=== PATIENT | male | born 1955 | race Caucasian/White ===

== ENCOUNTER 2017-04-14 15:33 | Inpatient (IN) | payer OTHER ==
[~2017-04-14] VITALS: Ht 177.8 cm; Wt 105.0 kg
[2017-04-14] MEDS ORDERED: ONDANSETRON 2MG/ML, 2ML ONE (16:24)
[2017-04-14] MEDS ORDERED: MORPHINE SULFATE 4 MG/ML, 1ML ONE (16:24)
[2017-04-14] MEDS ORDERED: METRONIDAZOLE PMX 500MG/100ML 100 ML ONE (16:26)
[2017-04-14] MEDS ORDERED: CIPROFLOXACIN/PMX 400MG/200ML 100 ML IVPB ONE (16:30)
[2017-04-14] MEDS ORDERED: ONDANSETRON 2MG/ML, 2ML IVPush ONE (16:30)
[2017-04-14] MEDS ORDERED: SODIUM CHLORIDE FLUSH 10ML SYR IVF ONE (16:30)
[2017-04-14] MEDS ORDERED: METRONIDAZOLE PMX 500MG/100ML 100 ML IVPB ONE (16:30)
[2017-04-14] MEDS ORDERED: MORPHINE SULFATE 4 MG/ML, 1ML IVPush PRN (16:30)
[2017-04-14] MEDS ORDERED: SODIUM CHLORIDE 0.9% 1,000ML IVBOLUS ONE (16:30)
[2017-04-14] MEDS ORDERED: ETOMIDATE 40 MG/20 ML ONE (16:35)
[2017-04-14] MEDS ORDERED: PROPOFOL 10 MG/ML, 20ML ONE (16:35)
[2017-04-14] MEDS ORDERED: MIDAZOLAM 1 MG/ML, 5ML ONE (16:35)
[2017-04-14 16:54] LABS: ASPARTATE AMINO TRANSFERASE 19 U/L (15-37); BLOOD UREA NITROGEN 14 mg/dL (7-18)
[2017-04-14] MEDS ORDERED: SODIUM CHLORIDE 0.9% 1,000 ML IV ONE (17:18)
[2017-04-14] MEDS ORDERED: SODIUM CHLORIDE FLUSH 10ML SYR IVF PRN (17:30)
[2017-04-14] MEDS ORDERED: CIPROFLOXACIN/PMX 400MG/200ML 200 ML ONE (18:04)
[2017-04-14] MEDS ORDERED: FENTANYL PF 250 MCG/5ML ONE ×2 (19:32→20:55)
[2017-04-14] MEDS ORDERED: MIDAZOLAM 1 MG/ML, 2ML ONE (19:32)
[2017-04-14 23:08] VITALS: BP 123/82
[2017-04-14] MEDS ORDERED: ONDANSETRON ODT 4 MG PO PRN (23:45)
[2017-04-14] MEDS ORDERED: SODIUM CHLORIDE 0.9%, 500ML IVBOLUS PRN (23:45)
[2017-04-15] MEDS: METRONIDAZOLE PMX 500MG/100ML 100 ML IV SCH ×4 (00:07→19:35)
[2017-04-15] MEDS: SODIUM CHLORIDE 0.9% 1,000 ML IV SCH ×3 (00:08→22:20)
[2017-04-15 02:35] VITALS: BP 105/63
[2017-04-15 06:07] LABS: ASPARTATE AMINO TRANSFERASE 14 U/L (15-37); BLOOD UREA NITROGEN 18 mg/dL (7-18)
[2017-04-15] MEDS: CIPROFLOXACIN/PMX 400MG/200ML 200 ML IV SCH ×2 (06:12→18:25)
[2017-04-15] MEDS: ENOXAPARIN 40 MG/0.4 ML SQ SCH (09:33)
[2017-04-15 09:43] VITALS: BP 117/75
[2017-04-15 14:00] VITALS: BP 125/78
[2017-04-15 21:06] VITALS: BP 129/81
[2017-04-16] MEDS: METRONIDAZOLE PMX 500MG/100ML 100 ML IV SCH ×4 (01:10→19:19)
[2017-04-16] MEDS: SODIUM CHLORIDE 0.9% 1,000 ML IV SCH ×3 (01:10→18:02)
[2017-04-16 04:12] VITALS: BP 122/76
[2017-04-16 05:36] LABS: BLOOD UREA NITROGEN 18 mg/dL (7-18)
[2017-04-16 05:39] LABS: ASPARTATE AMINO TRANSFERASE 17 U/L (15-37)
[2017-04-16] MEDS: CIPROFLOXACIN/PMX 400MG/200ML 200 ML IV SCH ×2 (05:47→17:56)
[2017-04-16] MEDS: ONDANSETRON 2MG/ML, 2ML IV PRN ×3 (06:09→14:14)
[2017-04-16 08:23] VITALS: BP 130/82
[2017-04-16] MEDS: ENOXAPARIN 40 MG/0.4 ML SQ SCH (09:13)
[2017-04-16 13:38] VITALS: BP 135/91
[2017-04-16 15:59] VITALS: BP 144/93
[2017-04-16] MEDS: FLUTICASONE NASAL SPRAY 16GM NAS SCH (17:30)
[2017-04-16 19:54] VITALS: BP 138/87
[2017-04-17] MEDS: METRONIDAZOLE PMX 500MG/100ML 100 ML IV SCH ×4 (00:54→19:38)
[2017-04-17 01:33] VITALS: BP 146/84
[2017-04-17 05:25] LABS: BLOOD UREA NITROGEN 26 mg/dL (7-18)
[2017-04-17] MEDS: CIPROFLOXACIN/PMX 400MG/200ML 200 ML IV SCH ×2 (05:47→18:12)
[2017-04-17] MEDS: SODIUM CHLORIDE 0.9% 1,000 ML IV SCH ×2 (07:58→21:34)
[2017-04-17] MEDS: ENOXAPARIN 40 MG/0.4 ML SQ SCH (07:58)
[2017-04-17 08:12] VITALS: BP 147/90
[2017-04-17] MEDS ORDERED: FLUTICASONE NASAL SPRAY 16GM NAS SCH (09:00)
[2017-04-17] MEDS: METOCLOPRAMIDE 5 MG/ML, 2ML IVPush SCH ×3 (09:41→21:35)
[2017-04-17 12:45] VITALS: BP 152/86
[2017-04-17 21:14] VITALS: BP 143/88
[2017-04-17] MEDS: FLUTICASONE NASAL SPRAY 16GM NAS SCH (21:35)
[2017-04-17] MEDS: LORazepam 0.5MG TABLET PO PRN (22:12)
[2017-04-18] MEDS: METRONIDAZOLE PMX 500MG/100ML 100 ML IV SCH ×4 (01:33→19:53)
[2017-04-18 03:15] VITALS: BP 139/87
[2017-04-18] MEDS: METOCLOPRAMIDE 5 MG/ML, 2ML IVPush SCH ×2 (03:34→08:11)
[2017-04-18 05:14] LABS: BLOOD UREA NITROGEN 31 mg/dL (7-18)
[2017-04-18] MEDS: CIPROFLOXACIN/PMX 400MG/200ML 200 ML IV SCH ×2 (05:52→18:00)
[2017-04-18] MEDS: ENOXAPARIN 40 MG/0.4 ML SQ SCH (08:18)
[2017-04-18] MEDS: SODIUM CHLORIDE 0.9% 1,000 ML IV SCH (08:18)
[2017-04-18 08:19] VITALS: BP 136/93
[2017-04-18] MEDS ORDERED: SODIUM CHLORIDE 0.9% 1,000 ML IV SCH (09:00)
[2017-04-18] MEDS ORDERED: TRAZODONE 50MG TABLET PO PRN (09:00)
[2017-04-18 14:49] VITALS: BP 130/80
[2017-04-18] MEDS: FLUTICASONE NASAL SPRAY 16GM NAS SCH (18:15)
[2017-04-18 19:03] VITALS: BP 127/90
[2017-04-18] MEDS: ONDANSETRON 2MG/ML, 2ML IV PRN (21:45)
[2017-04-19] VITALS (12 sets, daily range): BP systolic 100–138; BP diastolic 62–89
[2017-04-19] MEDS: LORazepam 0.5MG TABLET PO PRN (01:06)
[2017-04-19] MEDS: METRONIDAZOLE PMX 500MG/100ML 100 ML IV SCH ×4 (01:06→19:30)
[2017-04-19 05:06] LABS: BLOOD UREA NITROGEN 53 mg/dL (7-18)
[2017-04-19] MEDS: CIPROFLOXACIN/PMX 400MG/200ML 200 ML IV SCH (05:32)
[2017-04-19 05:38] LABS: DIFF TOTAL CELLS COUNTED 100 CELL DIFF
[2017-04-19 05:40] LABS: POIKILOCYTOSIS 1+; POLYCHROMASIA 1+; VERIFY COUNTS? YES
[2017-04-19] MEDS ORDERED: SODIUM CHLORIDE 0.9% 500 ML IV SCH (09:30)
[2017-04-19] MEDS ORDERED: OMNIPAQUE 350 MG/ML, 100ML BOTTLE ONE ×2 (10:10→17:33)
[2017-04-19] MEDS: SODIUM CHLORIDE 0.9% 500 ML IV SCH ×3 (10:30→20:30)
[2017-04-19] MEDS: PIPERACILLIN/TAZO/PMX 3.375GM 50 ML IV SCH ×2 (11:22→17:30)
[2017-04-19] MEDS: METOCLOPRAMIDE 5 MG/ML, 2ML IVPush SCH ×2 (11:22→17:00)
[2017-04-19] MEDS: FAMOTIDINE 20 MG/2 ML IVPush SCH (11:22)
[2017-04-19] MEDS: ENOXAPARIN 40 MG/0.4 ML SQ SCH (11:22)
[2017-04-19 17:06] LABS: IS PT STATUS REG ER OR PRE ER? NO
[2017-04-19] MEDS: morphine SULFATE 10 MG/ML, 1ML IV PRN (17:53)
[2017-04-19] MEDS: FLUTICASONE NASAL SPRAY 16GM NAS SCH (18:00)
[2017-04-19] MEDS ORDERED: NOREPINEPHRINE 1 MG/ML, 4ML ONE (18:13)
[2017-04-19 18:49] LABS: ABG COLLECTION SITE LEFT RADIAL; COLLATERAL CIRCULATION TESTING NORMAL
[2017-04-19 19:03] LABS: ASPARTATE AMINO TRANSFERASE 18 U/L (15-37); BLOOD UREA NITROGEN 67 mg/dL (7-18)
[2017-04-19] MEDS ORDERED: NOREPINEPHRINE 4 MG in SODIUM CHLORIDE 0.9% 246 ML IV PRN ×2 (19:18→19:30)
[2017-04-19] MEDS: PANTOPRAZOLE 80 MG in SODIUM CHLORIDE 0.9% 100 ML IV SCH ×2 (19:18→22:01)
[2017-04-19] MEDS ORDERED: PHARMACY MAY ADJ FOR RENAL FX MC SCH (19:30)
[2017-04-19] MEDS ORDERED: SODIUM CHLORIDE 0.9% 1,000ML IVBOLUS ONE ×2 (19:30)
[2017-04-19] MEDS ORDERED: DEXTROSE 4 GM TAB.CHEW PO PRN (19:30)
[2017-04-19] MEDS ORDERED: ETOMIDATE 20 MG/10 ML IVPush ONE (19:30)
[2017-04-19] MEDS ORDERED: MIDAZOLAM 1 MG/ML, 5ML IVPush ONE (19:30)
[2017-04-19] MEDS ORDERED: GLUCAGON 1 MG IM PRN (19:30)
[2017-04-19] MEDS ORDERED: LIDOCAINE-MPF 1%, 2ML ENDO PRN (19:30)
[2017-04-19 20:00] LABS: VERIFY COUNTS? YES
[2017-04-19] MEDS ORDERED: PANTOPRAZOLE 80 MG in SODIUM CHLORIDE 0.9% 50 ML IV ONE (20:00)
[2017-04-19] MEDS ORDERED: PANTOPRAZOLE 80 MG in SODIUM CHLORIDE 0.9% 100 ML IV SCH (20:00)
[2017-04-19 20:03] LABS: DIFF TOTAL CELLS COUNTED 200 CELL DIFF; POLYCHROMASIA 1+
[2017-04-19 20:09] LABS: IS PT STATUS REG ER OR PRE ER? NO
[2017-04-19] MEDS ORDERED: VASOPRESSIN 100 UNIT in SODIUM CHLORIDE 0.9% 495 ML IV PRN (20:30)
[2017-04-19] MEDS ORDERED: PHYTONADIONE 10 MG/ML, 1ML SQ ONE (20:30)
[2017-04-19] MEDS ORDERED: PROPOFOL 100 ML IV ONE (21:31)
[2017-04-19] MEDS: PROPOFOL 100 ML IV PRN (21:55)
[2017-04-19 22:46] LABS: IS PT STATUS REG ER OR PRE ER? NO
[2017-04-20] MEDS: NOREPINEPHRINE 16 MG in SODIUM CHLORIDE 0.9% 234 ML IV PRN ×2 (00:07→14:02)
[2017-04-20] MEDS: SODIUM CHLORIDE 0.9% 500 ML IV SCH ×2 (01:15→05:54)
[2017-04-20] MEDS: PIPERACILLIN/TAZO/PMX 3.375GM 50 ML IV SCH ×5 (01:15→23:26)
[2017-04-20] MEDS: METRONIDAZOLE PMX 500MG/100ML 100 ML IV SCH (01:15)
[2017-04-20] MEDS: PANTOPRAZOLE 80 MG in SODIUM CHLORIDE 0.9% 100 ML IV SCH ×3 (01:16→23:25)
[2017-04-20] MEDS: METOCLOPRAMIDE 5 MG/ML, 2ML IVPush SCH ×5 (01:19→23:24)
[2017-04-20] MEDS: FAMOTIDINE 20 MG/2 ML IVPush SCH (01:19)
[2017-04-20] MEDS: PROPOFOL 100 ML IV PRN ×6 (02:13→16:55)
[2017-04-20 02:43] VITALS: BP 106/70
[2017-04-20 02:44] VITALS: BP 106/70
[2017-04-20 03:01] VITALS: BP 96/75
[2017-04-20 05:05] LABS: ABG COLLECTION SITE RIGHT RADIAL; COLLATERAL CIRCULATION TESTING NORMAL
[2017-04-20 05:30] LABS: BLOOD UREA NITROGEN 60 mg/dL (7-18)
[2017-04-20 05:33] LABS: IS PT STATUS REG ER OR PRE ER? NO
[2017-04-20 05:42] LABS: DIFF TOTAL CELLS COUNTED 100 CELL DIFF
[2017-04-20 05:45] LABS: POLYCHROMASIA 2+; VERIFY COUNTS? YES
[2017-04-20 07:00] VITALS: BP 106/61
[2017-04-20] MEDS: ALBUTEROL/IPRATROPIUM 2.5MG/0.5MG, 3 ML INLINE PRN ×2 (07:45→10:25)
[2017-04-20] MEDS ORDERED: EPINEPHRINE SYRINGE 0.1 MG/ML, 10ML ONE (08:02)
[2017-04-20] MEDS ORDERED: SODIUM CHLORIDE 0.9% 1,000 ML IV SCH ×2 (09:00)
[2017-04-20] MEDS: morphine SULFATE 10 MG/ML, 1ML IV PRN ×3 (09:11→21:03)
[2017-04-20] MEDS: SODIUM CHLORIDE 0.9% 1,000 ML IV SCH ×3 (09:56→23:29)
[2017-04-20] MEDS ORDERED: MORPHINE SULFATE 4 MG/ML, 1ML IVPush ONE (10:00)
[2017-04-20 12:07] LABS: IS PT STATUS REG ER OR PRE ER? NO
[2017-04-20] MEDS: FLUTICASONE NASAL SPRAY 16GM NAS SCH (16:31)
[2017-04-20] MEDS: ALBUMIN HUMAN 25% 100 ML IV SCH (18:22)
[2017-04-21] MEDS: ALBUMIN HUMAN 25% 100 ML IV SCH ×3 (01:55→17:40)
[2017-04-21] MEDS: PROPOFOL 100 ML IV PRN ×2 (01:55→08:19)
[2017-04-21 04:22] LABS: ABG COLLECTION SITE RIGHT RADIAL; COLLATERAL CIRCULATION TESTING NORMAL
[2017-04-21 05:05] LABS: DIFF TOTAL CELLS COUNTED 100 CELL DIFF
[2017-04-21 05:07] LABS: VERIFY COUNTS? YES
[2017-04-21 05:08] LABS: ANISOCYTOSIS 1+; POLYCHROMASIA 1+
[2017-04-21 05:37] LABS: BLOOD UREA NITROGEN 35 mg/dL (7-18)
[2017-04-21 05:42] LABS: ASPARTATE AMINO TRANSFERASE 24 U/L (15-37)
[2017-04-21] MEDS: PIPERACILLIN/TAZO/PMX 3.375GM 50 ML IV SCH ×4 (05:50→23:25)
[2017-04-21] MEDS: METOCLOPRAMIDE 5 MG/ML, 2ML IVPush SCH ×4 (05:52→23:25)
[2017-04-21] MEDS: PANTOPRAZOLE 80 MG in SODIUM CHLORIDE 0.9% 100 ML IV SCH ×2 (09:07→21:29)
[2017-04-21] MEDS: SODIUM CHLORIDE 0.9% 1,000 ML IV SCH ×2 (10:55→23:29)
[2017-04-21] MEDS: FLUTICASONE NASAL SPRAY 16GM NAS SCH (17:45)
[2017-04-21] MEDS: OXYcodone IR 5MG TABLET PO PRN (20:24)
[2017-04-21] MEDS: TRAZODONE 50MG TABLET PO PRN (22:27)
[2017-04-22] MEDS: ALBUMIN HUMAN 25% 100 ML IV SCH ×2 (02:23→09:07)
[2017-04-22 04:38] LABS: ABG COLLECTION SITE RIGHT RADIAL; COLLATERAL CIRCULATION TESTING NORMAL
[2017-04-22] MEDS: METOCLOPRAMIDE 5 MG/ML, 2ML IVPush SCH ×4 (04:43→23:33)
[2017-04-22] MEDS: PIPERACILLIN/TAZO/PMX 3.375GM 50 ML IV SCH ×4 (04:43→23:33)
[2017-04-22 05:13] LABS: DIFF TOTAL CELLS COUNTED 100 CELL DIFF
[2017-04-22 05:15] LABS: VERIFY COUNTS? YES
[2017-04-22 05:16] LABS: ANISOCYTOSIS 1+; POLYCHROMASIA 1+
[2017-04-22 06:41] LABS: BLOOD UREA NITROGEN 23 mg/dL (7-18)
[2017-04-22] MEDS: OXYcodone IR 5MG TABLET PO PRN (07:05)
[2017-04-22] MEDS: PANTOPRAZOLE 80 MG in SODIUM CHLORIDE 0.9% 100 ML IV SCH ×2 (08:26→20:12)
[2017-04-22] MEDS ORDERED: LIDOCAINE 1%, 50ML ONE (08:55)
[2017-04-22] MEDS: SODIUM CHLORIDE 0.9% 1,000 ML IV SCH (09:07)
[2017-04-22] MEDS: FLUTICASONE NASAL SPRAY 16GM NAS SCH (17:04)
[2017-04-22] MEDS: TRAZODONE 50MG TABLET PO PRN (22:05)
[2017-04-23 05:04] LABS: ANISOCYTOSIS 1+
[2017-04-23 05:05] LABS: POLYCHROMASIA 1+
[2017-04-23] MEDS: PIPERACILLIN/TAZO/PMX 3.375GM 50 ML IV SCH ×4 (05:31→23:47)
[2017-04-23] MEDS: METOCLOPRAMIDE 5 MG/ML, 2ML IVPush SCH (05:31)
[2017-04-23] MEDS: PANTOPRAZOLE 80 MG in SODIUM CHLORIDE 0.9% 100 ML IV SCH (06:22)
[2017-04-23 06:47] LABS: BLOOD UREA NITROGEN 19 mg/dL (7-18)
[2017-04-23] MEDS ORDERED: POTASSIUM CHLORIDE 10% 40 MEQ/30 ML UDC PO ONE (09:30)
[2017-04-23] MEDS: PANTOPROZOLE 40MG TABLET PO SCH ×2 (09:37→21:25)
[2017-04-23] MEDS: SODIUM CHLORIDE 0.9% 1,000 ML IV SCH (11:00)
[2017-04-23 14:08] VITALS: BP 149/81
[2017-04-23 19:38] VITALS: BP 150/76
[2017-04-23] MEDS: LORazepam 0.5MG TABLET PO PRN (21:25)
[2017-04-23] MEDS: OXYcodone IR 5MG TABLET PO PRN (21:25)
[2017-04-23] MEDS: FLUTICASONE NASAL SPRAY 16GM NAS SCH (23:47)
[2017-04-24 01:50] VITALS: BP 144/72
[2017-04-24] MEDS: PIPERACILLIN/TAZO/PMX 3.375GM 50 ML IV SCH ×3 (04:59→18:44)
[2017-04-24 05:44] LABS: BLOOD UREA NITROGEN 17 mg/dL (7-18)
[2017-04-24 06:46] VITALS: BP 114/70
[2017-04-24] MEDS: POTASSIUM CHLORIDE 20 MEQ TAB.ER.PRT PO SCH (08:45)
[2017-04-24] MEDS: PANTOPROZOLE 40MG TABLET PO SCH ×2 (08:45→20:25)
[2017-04-24] MEDS: FUROSEMIDE 20 MG TABLET PO SCH (08:45)
[2017-04-24 14:14] VITALS: BP 111/68
[2017-04-24] MEDS: FLUTICASONE NASAL SPRAY 16GM NAS SCH (18:45)
[2017-04-24 20:25] VITALS: BP 119/70
[2017-04-24] MEDS: TRAZODONE 50MG TABLET PO PRN (20:25)
[2017-04-25] MEDS: PIPERACILLIN/TAZO/PMX 3.375GM 50 ML IV SCH ×2 (00:28→06:39)
[2017-04-25 01:20] VITALS: BP 126/71
[2017-04-25 04:48] LABS: BLOOD UREA NITROGEN 17 mg/dL (7-18)
[2017-04-25 04:51] LABS: ASPARTATE AMINO TRANSFERASE 29 U/L (15-37)
[2017-04-25] MEDS: PIPERACILLIN/TAZO/PMX 4.5GM 100 ML IV SCH ×2 (09:30→16:57)
[2017-04-25] MEDS: FUROSEMIDE 20 MG TABLET PO SCH (09:31)
[2017-04-25] MEDS: PANTOPROZOLE 40MG TABLET PO SCH ×2 (09:31→21:10)
[2017-04-25] MEDS: POTASSIUM CHLORIDE 20 MEQ TAB.ER.PRT PO SCH (09:31)
[2017-04-25 10:27] LABS: TOTAL IRON BINDING CAPACITY 147 mcg/dL (250-450)
[2017-04-25] MEDS ORDERED: IRON DEXTRAN IV PER PHARMACY IV ONE (11:30)
[2017-04-25] MEDS ORDERED: IRON DEXTRAN COMPLEX 25 MG in SODIUM CHLORIDE 0.9% 50 ML IV ONE (12:00)
[2017-04-25] MEDS: SODIUM CHLORIDE 0.9% IV ONE ×2 (14:00→23:27)
[2017-04-25] MEDS: IRON DEXTRAN COMPLEX IV ONE ×2 (14:00→23:27)
[2017-04-25 20:23] VITALS: BP 117/71
[2017-04-25] MEDS: FLUTICASONE NASAL SPRAY 16GM NAS SCH (21:10)
[2017-04-25] MEDS: TRAZODONE 50MG TABLET PO PRN (21:10)
[2017-04-26] MEDS: PIPERACILLIN/TAZO/PMX 4.5GM 100 ML IV SCH ×3 (01:06→18:22)
[2017-04-26 02:41] VITALS: BP 99/60
[2017-04-26 06:05] LABS: BLOOD UREA NITROGEN 16 mg/dL (7-18)
[2017-04-26 07:40] VITALS: BP 121/69
[2017-04-26] MEDS: POTASSIUM CHLORIDE 20 MEQ TAB.ER.PRT PO SCH (09:05)
[2017-04-26] MEDS: FUROSEMIDE 20 MG TABLET PO SCH (09:05)
[2017-04-26] MEDS: PANTOPROZOLE 40MG TABLET PO SCH ×2 (09:05→19:47)
[2017-04-26] MEDS ORDERED: ERGOCALCIFEROL 50,000 UNIT CAPSULE PO SCH (11:30)
[2017-04-26 14:00] VITALS: BP 129/72
[2017-04-26] MEDS: FLUTICASONE NASAL SPRAY 16GM NAS SCH (18:22)
[2017-04-26 19:28] VITALS: BP 123/81
[2017-04-26] MEDS: TRAZODONE 50MG TABLET PO PRN (21:26)
[2017-04-27 01:01] VITALS: BP 109/65
[2017-04-27] MEDS: PIPERACILLIN/TAZO/PMX 4.5GM 100 ML IV SCH ×2 (02:47→10:57)
[2017-04-27 08:33] VITALS: BP 113/72
[2017-04-27] MEDS: PANTOPROZOLE 40MG TABLET PO SCH ×2 (09:04→19:41)
[2017-04-27] MEDS: AMOXICILLIN/CLAV 500-125MG TABLET PO SCH ×2 (12:19→19:41)
[2017-04-27 14:51] VITALS: BP 131/79
[2017-04-27] MEDS: FLUTICASONE NASAL SPRAY 16GM NAS SCH (18:28)
[2017-04-27 20:10] VITALS: BP 123/72
[2017-04-27] MEDS: TRAZODONE 50MG TABLET PO PRN ×2 (21:22→21:58)
[2017-04-28 01:37] VITALS: BP 112/61
[2017-04-28] MEDS: AMOXICILLIN/CLAV 500-125MG TABLET PO SCH (03:55)
[2017-04-28 06:21] LABS: BLOOD UREA NITROGEN 9 mg/dL (7-18)
[2017-04-28 06:31] LABS: ASPARTATE AMINO TRANSFERASE 20 U/L (15-37)
[2017-04-28 07:03] VITALS: BP 123/78
[2017-04-28] MEDS: PANTOPROZOLE 40MG TABLET PO SCH (07:34)
[2017-04-28] MEDS ORDERED: AMOX1TAB61 PO (09:11)
[2017-04-28] MEDS ORDERED: TRAZ100T15 PO (09:12)
[2017-04-28] MEDS ORDERED: PANT40TA3 PO (09:13)
[2017-04-28 10:51] VITALS: BP 137/80
== END 2017-04-28 11:06 | disposition home health service (06) | DRG 853 ==
LOC: OR 16:00 → 4NOR 16:50 → CCU 04-19 17:23 → 4NOR 04-23 14:09 → DCLOUNGE 04-28 10:49
PROVIDERS: ADMIT Internal Medicine; ATTEND Internal Medicine
PROC: 0DBN0ZZ Excision of Sigmoid Colon, Open Approach (ICD-10-PCS; principal; 2017-04-14 20:00)
PROC: 0D1B0Z4 Bypass Ileum to Cutaneous, Open Approach (ICD-10-PCS; 2017-04-14 20:00)
PROC: 30233N1 Transfusion of Nonautologous Red Blood Cells into Peripheral Vein, Percutaneous Approach (ICD-10-PCS; 2017-04-19)
PROC: 02HV33Z Insertion of Infusion Device into Superior Vena Cava, Percutaneous Approach (ICD-10-PCS; 2017-04-19)
PROC: 0BH18EZ Insertion of Endotracheal Airway into Trachea, Via Natural or Artificial Opening Endoscopic (ICD-10-PCS; 2017-04-19)
PROC: 5A1945Z Respiratory Ventilation, 24-96 Consecutive Hours (ICD-10-PCS; 2017-04-19)
PROC: 3E0G8GC Introduction of Other Therapeutic Substance into Upper GI, Via Natural or Artificial Opening Endoscopic (ICD-10-PCS; 2017-04-19)
PROC: 0W3P8ZZ Control Bleeding in Gastrointestinal Tract, Via Natural or Artificial Opening Endoscopic (ICD-10-PCS; 2017-04-19)
PROC: 30233L1 Transfusion of Nonautologous Fresh Plasma into Peripheral Vein, Percutaneous Approach (ICD-10-PCS; 2017-04-20)
PROC: 30233K1 Transfusion of Nonautologous Frozen Plasma into Peripheral Vein, Percutaneous Approach (ICD-10-PCS; 2017-04-20)
PROC: 0W3P8ZZ Control Bleeding in Gastrointestinal Tract, Via Natural or Artificial Opening Endoscopic (ICD-10-PCS; 2017-04-20)
PROC: 0W9930Z Drainage of Right Pleural Cavity with Drainage Device, Percutaneous Approach (ICD-10-PCS; 2017-04-21)
DX: A41.9 Sepsis, unspecified organism (principal); G93.40 Encephalopathy, unspecified; R57.1 Hypovolemic shock; J96.01 Acute respiratory failure with hypoxia; K22.11 Ulcer of esophagus with bleeding; K25.4 Chronic or unspecified gastric ulcer with hemorrhage; K57.20 Diverticulitis of large intestine with perforation and abscess without bleeding; D62 Acute posthemorrhagic anemia; K56.7 Ileus, unspecified; J93.9 Pneumothorax, unspecified; D68.9 Coagulation defect, unspecified; Z99.11 Dependence on respirator [ventilator] status; J98.11 Atelectasis; E66.9 Obesity, unspecified; D63.8 Anemia in other chronic diseases classified elsewhere; B95.61 Methicillin susceptible Staphylococcus aureus infection as the cause of diseases classified elsewhere; B96.20 Unspecified Escherichia coli [E. coli] as the cause of diseases classified elsewhere; B95.4 Other streptococcus as the cause of diseases classified elsewhere; B96.6 Bacteroides fragilis [B. fragilis] as the cause of diseases classified elsewhere; I10 Essential (primary) hypertension; I80.8 Phlebitis and thrombophlebitis of other sites; Z68.32 Body mass index [BMI] 32.0-32.9, adult; Z88.2 Allergy status to sulfonamides; Z93.3 Colostomy status; Z90.49 Acquired absence of other specified parts of digestive tract
CPT/HCPCS: 32551; 32557; 36415; 36600; 71010; 71275; 74000; 74176; 74177; 80048; 80053; 82040; 82306; 82607; 82803; 83540; 83550; 83605; 83735; 84439; 84443; 84478; 84484; 85018; 85025; 85049; 85379; 85384; 85610; 85651; 85730; 86140; 86850; 86900; 86923; 87015; 87040; 87070; 87075; 87076; 87077; 87081; 87102; 87116; 87186; 87205; 87206; 88307; 93005; 93306; 94002; 94003; 94640; 96365; 96366; 96367; 96375; J0744; J1650; J1750; J2250; J2270; J2405; J2543; J2704; J3010; J3430; J7620; P9047; Q9967; C1729; C1769; C9113; J2765; J7030; J7040; J7050; P9016; P9017; S0028

== ENCOUNTER → 2017-04-14 | Outpatient (CLI) | payer OTHER ==
[~2017-04-14] MED LIST: GLYCOPYRROLATE 0.2MG/1ML ONE; NEOSTIGMINE 1 MG/ML, 10ML ONE; OMNIPAQUE 350 MG/ML, 100ML BOTTLE ONE; ONDANSETRON 2MG/ML, 2ML ONE; PROPOFOL 10 MG/ML, 20ML ONE; ROCURONIUM 10 MG/ML ONE; SUCCINYLCHOLINE 20 MG/ML, 10ML ONE
== END | disposition home or self-care (01) ==
LOC: RAD 12:54
PROVIDERS: ATTEND Physician Assistant
DX: K57.20 Diverticulitis of large intestine with perforation and abscess without bleeding (principal)
CPT/HCPCS: 74177; Q9967; J2405; J2704; J2710; J3490; J0330

== ENCOUNTER → 2017-05-30 | Outpatient (CLI) | payer OTHER ==
[~2017-05-30] MED LIST changes: +AMOX1TAB61 PO; -GLYCOPYRROLATE 0.2MG/1ML ONE; -NEOSTIGMINE 1 MG/ML, 10ML ONE; -OMNIPAQUE 350 MG/ML, 100ML BOTTLE ONE; -ONDANSETRON 2MG/ML, 2ML ONE; +PANT40TA3 PO; -PROPOFOL 10 MG/ML, 20ML ONE; -ROCURONIUM 10 MG/ML ONE; -SUCCINYLCHOLINE 20 MG/ML, 10ML ONE; +TRAZ100T15 PO
== END | disposition home or self-care (01) ==
LOC: RAD 09:31
PROVIDERS: ATTEND Surgery
DX: K57.32 Diverticulitis of large intestine without perforation or abscess without bleeding (principal); Z93.2 Ileostomy status
CPT/HCPCS: 74270

== ENCOUNTER → 2017-06-13 | Outpatient (CLI) | payer OTHER ==
[~2017-06-13] MED LIST changes: +FINA5TAB4 PO
== END | disposition home or self-care (01) ==
LOC: STAR 12:42
PROVIDERS: ATTEND Surgery
DX: Z02.9 Encounter for administrative examinations, unspecified (principal)

== ENCOUNTER 2017-06-24 09:13 | Inpatient (IN) | payer OTHER ==
[~2017-06-24] VITALS: Ht 177.8 cm; Wt 104.0 kg
[2017-06-24] MEDS ORDERED: LACTATED RINGERS 1,000 ML IV SCH (09:27)
[2017-06-24] MEDS ORDERED: MIDAZOLAM 1 MG/ML, 2ML ONE (11:12)
[2017-06-24] MEDS ORDERED: FENTANYL PF 100 MCG/2ML ONE ×3 (11:12→13:02)
[2017-06-24] MEDS ORDERED: DEXAMETHASONE 4 MG/ML, 1ML ONE (11:56)
[2017-06-24] MEDS ORDERED: KETOROLAC 30 MG/1 ML ONE (11:56)
[2017-06-24] MEDS ORDERED: PROPOFOL 10 MG/ML, 20ML ONE (11:56)
[2017-06-24] MEDS ORDERED: SUCCINYLCHOLINE 20 MG/ML, 10ML ONE (11:56)
[2017-06-24] MEDS ORDERED: CEFAZOLIN 1,000 MG ONE (11:56)
[2017-06-24] MEDS ORDERED: ROCURONIUM 10 MG/ML ONE (11:56)
[2017-06-24] MEDS ORDERED: ONDANSETRON 2MG/ML, 2ML ONE (11:56)
[2017-06-24] MEDS ORDERED: BUPIVACAINE/PF 0.5% INFIL ONE (12:38)
[2017-06-24] MEDS ORDERED: ACETAMINOPHEN 650 MG/20.3 ML UDC ONE (13:02)
[2017-06-24] MEDS ORDERED: OXYcodone 5 MG/5 ML ORAL.SOL UDC ONE (13:02)
[2017-06-24] MEDS ORDERED: ONDANSETRON 2MG/ML, 2ML IVPush PRN (13:30)
[2017-06-24] MEDS ORDERED: MEPERIDINE/PF 25MG/0.5ML IVPush PRN (13:30)
[2017-06-24] MEDS ORDERED: ACETAMINOPHEN 325 MG TABLET PO PRN (13:30)
[2017-06-24] MEDS ORDERED: METOCLOPRAMIDE 5 MG/ML, 2ML IV PRN (13:30)
[2017-06-24] MEDS ORDERED: PROMETHAZINE 25 MG/ML, 1ML IV PRN (13:30)
[2017-06-24] MEDS ORDERED: MIDAZOLAM 1 MG/ML, 2ML IV PRN (13:30)
[2017-06-24] MEDS ORDERED: ALBUTEROL/IPRATROPIUM 2.5MG/0.5MG, 3 ML NPPB PRN (13:30)
[2017-06-24] MEDS ORDERED: LABETALOL 5MG/ML, 20ML IV PRN (13:30)
[2017-06-24] MEDS ORDERED: DIAZEPAM 5 MG/ML, 2ML IVPush PRN (13:30)
[2017-06-24] MEDS ORDERED: HYDROmorphone 1 MG/ML, 1ML IV PRN ×2 (13:30→15:00)
[2017-06-24] MEDS ORDERED: hydrALAzine 20 MG/ML, 1ML IV PRN (13:30)
[2017-06-24] MEDS ORDERED: FENTANYL PF 100 MCG/2ML IV PRN (13:30)
[2017-06-24] MEDS ORDERED: OXYcodone 5 MG/5 ML ORAL.SOL UDC PO PRN (13:30)
[2017-06-24 14:00] VITALS: BP 89/52
[2017-06-24] MEDS ORDERED: LABETALOL 5MG/ML, 20ML IVPush SCH (15:00)
[2017-06-24] MEDS ORDERED: ENALAPRILAT 1.25 MG/ML, 2ML IV PRN (15:00)
[2017-06-24] MEDS ORDERED: SODIUM CHLORIDE 0.9% 1,000 ML IV SCH (15:00)
[2017-06-24] MEDS ORDERED: DIPHENHYDRAMINE 25 MG CAPSULE PO PRN (15:00)
[2017-06-24] MEDS ORDERED: DIPHENHYDRAMINE 50 MG/ML, 1ML IV PRN (15:00)
[2017-06-24 18:54] VITALS: BP 98/67
[2017-06-24 20:00] VITALS: BP 109/77
[2017-06-24] MEDS: OXYcodone/APAP 5/325MG TABLET PO PRN ×2 (20:54→21:59)
[2017-06-24] MEDS: PANTOPROZOLE 40MG TABLET PO SCH (20:55)
[2017-06-25] VITALS (7 sets, daily range): BP systolic 101–135; BP diastolic 64–92
[2017-06-25] MEDS: CEFOTETAN PMX 2GM/50ML 50 ML IVPB SCH ×2 (00:12→12:19)
[2017-06-25 06:06] LABS: HEMATOCRIT 40.2 % (39.2-51.8); HEMOGLOBIN 13.4 g/dL (13.7-18.0); WHITE BLOOD COUNT 15.6 x10^3/uL (3.4-10)
[2017-06-25] MEDS: PANTOPROZOLE 40MG TABLET PO SCH ×2 (08:51→21:27)
[2017-06-25] MEDS: FINASTERIDE 5 MG TABLET PO SCH (08:51)
[2017-06-25] MEDS: SODIUM CHLORIDE 0.9% 1,000 ML IV SCH (14:11)
[2017-06-25] MEDS ORDERED: SODIUM CHLORIDE 0.9% 1,000 ML IV SCH (15:00)
[2017-06-25] MEDS: OXYcodone/APAP 5/325MG TABLET PO PRN ×2 (17:15→21:27)
[2017-06-25] MEDS: ONDANSETRON 2MG/ML, 2ML IV PRN (19:56)
[2017-06-26] MEDS: SODIUM CHLORIDE 0.9% 1,000 ML IV SCH ×3 (00:06→19:00)
[2017-06-26] MEDS: PROMETHAZINE 25 MG/ML, 1ML IM PRN ×4 (00:06→21:51)
[2017-06-26] MEDS: OXYcodone/APAP 5/325MG TABLET PO PRN (02:00)
[2017-06-26 02:39] VITALS: BP 133/84
[2017-06-26] MEDS: ONDANSETRON 2MG/ML, 2ML IV PRN ×3 (03:24→16:02)
[2017-06-26] MEDS: METOCLOPRAMIDE 5 MG/ML, 2ML IV SCH ×3 (09:16→21:48)
[2017-06-26] MEDS: PANTOPROZOLE 40MG TABLET PO SCH ×2 (09:17→21:48)
[2017-06-26] MEDS: FINASTERIDE 5 MG TABLET PO SCH (09:17)
[2017-06-26 09:46] LABS: HEMATOCRIT 42.1 % (39.2-51.8); WHITE BLOOD COUNT 16.5 x10^3/uL (3.4-10)
[2017-06-26 10:18] LABS: BLOOD UREA NITROGEN 16 mg/dL (7-18)
[2017-06-26 12:30] VITALS: BP 136/88
[2017-06-26 18:53] VITALS: BP 115/78
[2017-06-26] MEDS: ACETAMINOPHEN 325 MG TABLET PO PRN (21:48)
[2017-06-27 01:08] VITALS: BP 98/69
[2017-06-27] MEDS: METOCLOPRAMIDE 5 MG/ML, 2ML IV SCH ×4 (02:58→20:17)
[2017-06-27] MEDS: SODIUM CHLORIDE 0.9% 1,000 ML IV SCH ×3 (04:26→22:00)
[2017-06-27 05:50] LABS: HEMATOCRIT 33.7 % (39.2-51.8); HEMOGLOBIN 11.3 g/dL (13.7-18.0); WHITE BLOOD COUNT 10.4 x10^3/uL (3.4-10)
[2017-06-27 05:54] LABS: BLOOD UREA NITROGEN 16 mg/dL (7-18)
[2017-06-27 06:35] VITALS: BP 121/77
[2017-06-27] MEDS: FINASTERIDE 5 MG TABLET PO SCH (09:53)
[2017-06-27] MEDS: PANTOPROZOLE 40MG TABLET PO SCH ×2 (09:54→20:17)
[2017-06-27] MEDS: ACETAMINOPHEN 325 MG TABLET PO PRN ×2 (10:01→20:17)
[2017-06-27 13:40] VITALS: BP 126/82
[2017-06-27 19:11] VITALS: BP 121/75
[2017-06-28 01:15] VITALS: BP 121/76
[2017-06-28] MEDS: METOCLOPRAMIDE 5 MG/ML, 2ML IV SCH ×4 (03:03→21:00)
[2017-06-28 05:46] LABS: HEMATOCRIT 31.5 % (39.2-51.8); HEMOGLOBIN 10.8 g/dL (13.7-18.0); WHITE BLOOD COUNT 6.4 x10^3/uL (3.4-10)
[2017-06-28] MEDS: PANTOPROZOLE 40MG TABLET PO SCH ×2 (08:37→21:04)
[2017-06-28] MEDS: FINASTERIDE 5 MG TABLET PO SCH (08:37)
[2017-06-28] MEDS: SODIUM CHLORIDE 0.9% 1,000 ML IV SCH ×2 (10:30→23:00)
[2017-06-28 15:17] VITALS: BP 115/76
[2017-06-28 21:08] VITALS: BP 130/79
[2017-06-29] MEDS: METOCLOPRAMIDE 5 MG/ML, 2ML IV SCH ×2 (03:00→07:44)
[2017-06-29 03:36] VITALS: BP 127/80
[2017-06-29] MEDS: FINASTERIDE 5 MG TABLET PO SCH (07:44)
[2017-06-29] MEDS: PANTOPROZOLE 40MG TABLET PO SCH (07:44)
[2017-06-29 07:51] VITALS: BP 120/86
== END 2017-06-29 10:10 | disposition home or self-care (01) | DRG 330 ==
LOC: ORIP 09:13 → 4NOR 14:00
PROVIDERS: ADMIT Surgery; ATTEND Surgery
PROC: 0DBB0ZZ Excision of Ileum, Open Approach (ICD-10-PCS; 2017-06-24)
PROC: 0D1B0Z4 Bypass Ileum to Cutaneous, Open Approach (ICD-10-PCS; principal; 2017-06-24 11:30)
DX: K91.89 Other postprocedural complications and disorders of digestive system (principal); K56.7 Ileus, unspecified; Z43.2 Encounter for attention to ileostomy
CPT/HCPCS: 36415; 80048; 85025; 88304; J0690; J1100; J1885; J2250; J2405; J2550; J2704; J3010; J3490; J0330; J2765; J7030; J7120; S0074